=== PATIENT | male | born 1975 | race Caucasian/White ===

== ENCOUNTER 2018-04-25 17:49 | Emergency (ER) | payer OTHER ==
[~2018-04-25] VITALS: Ht 175.3 cm; Wt 113.4 kg
[~2018-04-25 17:49] MED LIST: ALBU90OI6 INH; ANTIHISTAMINE EY5 ML BOTHEYES; ATOR20; ATOR20 PO; BUDE6HFA; BUDE6HFA INH; CETI5 PO; CITA20 PO; MONT10T PO; NASACORT10.8 ML; OMEP20ER PO; OMEPRAZOLE MAGN20 MG; QVAR7.3 G1 INH; Ventolin Soln3 ML INH
[2018-04-25] MEDS ORDERED: MONT10T PO (18:46)
[2018-04-25] MEDS ORDERED: Prednisone50 MG PO (19:27)
== END 2018-04-25 20:09 | disposition home or self-care (01) ==
LOC: ER 17:49
DX: J45.901 Unspecified asthma with (acute) exacerbation (principal); Z88.5 Allergy status to narcotic agent; Z91.048 Other nonmedicinal substance allergy status; Z79.899 Other long term (current) drug therapy
CPT/HCPCS: 36415; 94640; 96374; 99283-25; J1100

== ENCOUNTER 2019-04-29 17:55 | Inpatient (IN) | payer OTHER ==
[~2019-04-29] VITALS: Ht 172.7 cm; Wt 105.2 kg
[~2019-04-29 17:55] MED LIST changes: -ATOR20; -BUDE6HFA; +Prednisone50 MG PO
[2019-04-29] MEDS ORDERED: ALBU3IS INH (18:31)
[2019-04-29] MEDS ORDERED: TEMA15 PO (18:31)
[2019-04-29] MEDS ORDERED: TIOT18 INH (18:31)
[2019-04-29] MEDS ORDERED: Voltaren100 GM TOP (18:32)
[2019-04-29] MEDS ORDERED: CLOB.05TO (18:32)
[2019-04-29] MEDS ORDERED: [UNRECOGNIZED DRUG - OTHER] MC (18:33)
[2019-04-29 19:09] LABS: BASOPHILS ABSOLUTE AUTO 0.09 K/mm3 (0.00-0.23); BASOPHILS PERCENT AUTO 2 % (0-2); EOSINOPHILS ABSOLUTE AUTO 0.17 K/mm3 (0.00-0.68); EOSINOPHILS PERCENT AUTO 3 % (0-6); Hemoglobin 15.8 g/dL (13.5-17.5); IMMATURE GRAN ABSOLUTE AUTO 0.01 K/mm3 (0.00-0.10); IMMATURE GRAN PERCENT AUTO 0 % (0-1); LYMPHOCYTES PERCENT AUTO 21 % (21-46); MONOCYTES ABSOLUTE AUTO 0.67 K/mm3 (0.16-1.47); MONOCYTES PERCENT AUTO 11 % (4-13); Mean Corpuscular HGB 29.2 pg (26.0-34.0); Mean Corpuscular HGB Conc 33.6 g/dL (31.5-36.5); Mean Corpuscular Volume 87 fL (80-100); Mean Platelet Volume 10.6 fL (9.1-12.4); NEUTROPHILS ABSOLUTE AUTO 3.93 K/mm3 (1.96-9.15); NEUTROPHILS PERCENT AUTO 64 % (41-73); Platelet Count 274 K/mm3 (150-400); RDW Coefficient Variation 12.1 % (11.7-14.2); RDW Standard Deviation 38.4 fL (35.1-46.3); Red Blood Cell Count 5.41 M/mm3 (4.30-5.90); White Blood Cell Count 6.17 K/mm3 (4.00-11.30)
[2019-04-29 19:23] LABS: Alanine Aminotransfer (ALT/SGP 34 U/L (12-78); Albumin, Blood 3.9 g/dL (3.4-5.0); Albumin/Globulin Ratio 1.3 (0.8-1.8); Alk Phos 66 U/L (50-136); Anion Gap 8 mmol/L (6-16); Aspartate Aminotrans (AST/SGOT 22 U/L (12-37); Bilirubin, Total 0.6 mg/dL (0.1-1.0); Blood Urea Nitrogen 19 mg/dL (8-24); Bun/Creatinine Ratio 26.1 (12.0-20.0); CO2, Blood 22 mmol/L (21-32); Calcium, Blood 8.6 mg/dL (8.5-10.1); Chloride, Blood 109 mmol/L (98-108); Creatinine, Blood 0.73 mg/dL (0.60-1.20); Globulin, Blood 3.1 g/dL (2.2-4.0); Glomerular Filtration Rate >60 (60-); Glucose, Blood 99 mg/dL (70-99); Potassium, Blood 3.8 mmol/L (3.5-5.5); Sodium, Blood 139 mmol/L (136-145); Troponin I 0.076 ng/mL (0.000-0.040)
[2019-04-29] MEDS ORDERED: OMEPRAZOLE20 MG PO (23:05)
[2019-04-30 02:13] LABS: Anion Gap 5 mmol/L (6-16); Blood Urea Nitrogen 22 mg/dL (8-24); Bun/Creatinine Ratio 25.9 (12.0-20.0); CHOL/HDL RATIO 5.6; CO2, Blood 28 mmol/L (21-32); Calcium, Blood 8.7 mg/dL (8.5-10.1); Chloride, Blood 109 mmol/L (98-108); Cholesterol 206 mg/dL (50-200); Creatinine, Blood 0.85 mg/dL (0.60-1.20); Glomerular Filtration Rate >60 (60-); Glucose, Blood 91 mg/dL (70-99); HDL Cholesterol 37 mg/dL (>39); LDL/HDL RATIO 3.5; Low Density Lipoprotein Chol 128 mg/dL (0-110); Potassium, Blood 3.6 mmol/L (3.5-5.5); Sodium, Blood 142 mmol/L (136-145); Triglycerides 206 mg/dL (30-160); Very Low Density Lipoprot Chol 41 mg/dL (6-32)
--- NOTE | 2019-04-30 05:03 | NUR ---
SHIFT SUMMARY PT NEW ADMIT THIS SHIFT. AAOX4. NPO THIS AM FOR POSSIBLE PROCEDURE. ELEVATED TROPONINS THIS AM, CARDIOLOGY CONSULT CALLED, HEPARIN BOLUS + GTT STARTED + PLAVIX DOSE GIVEN PER ORDERS. PT ORIENTED TO ROOM + CALL LIGHT. INDEPENDENT IN ROOM. ANXIOUS AT TIMES R/T DX, QUESTIONS ANSWERED. PT RESTING AT THIS TIME, NADN, WITH CALL LIGHT IN REACH.
--- NOTE | 2019-04-30 08:00 | NUR ---
HEPARIN DRIP STOPPED PER VERBAL ORDER FROM DR CRAWFORD
--- NOTE | 2019-04-30 10:53 | NUR ---
Echocardiogram completed.
--- NOTE | 2019-04-30 16:00 | NUR ---
SHIFT SUMMARY PT A&OX4, VSS, NPO SINCE MIDNIGHT FOR HYDROPULPER, DR CRAWFORD CONSULTED WITH PT AT 0800. FAMILY AT BEDSIDE WHEN PT WENT TO [facility] AT 1600. XANAX GIVEN TWICE FOR PT ANXIETY. REPORT CALLED TO ASHLEY RN IN PCU - FOR PT TRANSFER POST PROCEDURE TO PCU 5.
--- NOTE | 2019-04-30 18:25 | NUR ---
Right radial artery site was checked: No bleeding, no bruising, no swelling, no hematoma. Pt states no pain in the arm or hand. Cap refill is 3 seconds. TR band is in place, as well as white immoblizer board. Vital signs taken. Pt is requesting a breathing treatment, so respiratory care was notified. He appears to be breathing without any tachypnea, no use of accessory muscles, and sp02 is WNL. He is sitting up in bed, HOB elevated about 60 degrees. No tripoding, no dyspnea noted.
--- NOTE | 2019-04-30 20:30 | NUR ---
ASSUMED CARE ASSUMED CARE OF PATIENT AT 1900, PATIENT AWAKE SITTING IN BED WITH FAMILY IN ROOM. ASSESSING RIGHT RADIAL ANGIO SITE WITH OUTGOING RN, SITE IS INTACT, NO BLEEDING UNDER TR BAND FULLY INFLATED. PATIENT DENIES ACUTE PAIN AT SITE, NO REDNESS NO SWELLING NOTED. ARM BOARD IN PLACE, PATIENT COOPERATIVE WITH VITALS AND SITE ASSESSMENTS. SENSATION AND PERFUSION INTACT TO HAND AND FINGERS DISTAL TO SITE, SATURATION AT FINGERTIP IS 94%. PATIENT WILL NOT LOOK AT SITE, TURNS HEAD WHEN SITE IS ASSESSED. WILL CONTINUE TO ASSESS, MONITOR, AND TREAT PATIENT PER ORDER AND UNIT PROTOCOL.
--- NOTE | 2019-04-30 23:50 | NUR ---
AIR REMOVED FROM TR BAND REMOVED THE LAST OF 13 CC OF AIR FROM PATIENT'S TR BAND. SITE IS INTACT, WNL, NO BLEEDING, SWELLING OUT OF PROPORTION. VITALS CHECKS AND SITE ASSESSMENTS PER UNIT PROTOCOL HAVE ALL BEEN NORMAL WITH NO ISSUES. PATIENT IS EAGER TO GET SOME SLEEP AND ASKS THAT TR BAND BE LEFT IN PLACE UNTIL 4AM VITALS ARE TAKEN, RATHER THAN BE DISTURBED AT 0100.
--- NOTE | 2019-05-01 06:26 | NUR ---
SHIFT SUMMARY NO CHANGES FROM PREVIOUS NOTES. PATIENT WAS ABLE TO SLEEP A FEW HOURS IN THE PIPING DESIGNER, TR BAND WAS REMOVED AND REPLACED WITH CLEAR DRESSING AT AROUND 0330 WITH MORNING VITALS PATIENT REQUESTED TO NOT BE AWOKEN FOR ITS REMOVAL AT 0100 WOULD BE NORMALLY DONE. RIGHT WRIST ANGIO SITE REMAINED INTACT WITH NO NEW BLEEDING, REDNESS, SORENESS, OR SWELLING. PERFUSION TO PERIFERY REMAINED ABOVE 95% O2, AND SENSATION REMAINED INTACT THROUGHOUT. ALL VSS AND WNL. WILL CONTINUE TO MONITOR AND WILL PASS CARE TO ONCOMING SHIFT AT 0700. PATIENT'S BED IS LOCKED AND LOW, CALL LIGHT W/IN REACH
--- NOTE | 2019-05-01 08:00 | NUR ---
pt laying in bed awake a/ox3, pleasant and cooperative with care, follows commands, denies pain, states he slept well last night, lungs are clear dim in bases, resp even and unlabored, no cough noted, hrr, tele in place running sr per monitor, see strip, no edema noted, ppp+2, cap refill <3sec, vs stable, afebrile, iv sites are clear and patent, btx4, abd flat soft nontender, voids without diff, skin c/w/d, maew, jeni, call light in reach.
[2019-05-01] MEDS ORDERED: CLOP75 PO (10:12)
[2019-05-01] MEDS ORDERED: ASPI81CH PO (10:12)
--- NOTE | 2019-05-01 10:45 | NUR ---
pt has been discharged to home. went over his discharge instructions with him, he verbalized understanding. he has very high anxiety, had a hard time when removing iv's, doing ok now. iv's removed intact. pre printed instructions for tr band given. he is getting dressed and waiting for ride.
--- NOTE | 2019-05-01 11:19 | NUR ---
pt left via ambulation with manager cable in attendence with all his belongings.
== END 2019-05-01 11:19 | disposition home or self-care (01) | DRG 247 ==
LOC: ER 17:55 → SURS 21:34 → PCU 04-30 17:59
PROVIDERS: Emergency Medicine; Nurse Practitioner Acute Care; ADMIT Hospitalist
PROC: 4A023N8 Measurement of Cardiac Sampling and Pressure, Bilateral, Percutaneous Approach (ICD-10-PCS; principal; 2019-05-01)
PROC: 027035Z Dilation of Coronary Artery, One Artery with Two Drug-eluting Intraluminal Devices, Percutaneous Approach (ICD-10-PCS; 2019-05-01)
PROC: B211YZZ Fluoroscopy of Multiple Coronary Arteries using Other Contrast (ICD-10-PCS; 2019-05-01)
PROC: B216YZZ Fluoroscopy of Right and Left Heart using Other Contrast (ICD-10-PCS; 2019-05-01)
DX: I21.4 Non-ST elevation (NSTEMI) myocardial infarction (principal); I25.110 Atherosclerotic heart disease of native coronary artery with unstable angina pectoris; I10 Essential (primary) hypertension; K21.9 Gastro-esophageal reflux disease without esophagitis; R00.1 Bradycardia, unspecified; E78.5 Hyperlipidemia, unspecified; F41.9 Anxiety disorder, unspecified; E66.01 Morbid (severe) obesity due to excess calories; Z68.35 Body mass index [BMI] 35.0-35.9, adult
CPT/HCPCS: 36415; 71046; 80048; 80053; 80061; 83880; 84484; 85025; 85347; 85730; 90670; 90686; 92978; 93005; 93010; 93306; 93454; 94640; 94760; 96374; 99152; 99153; 99285-25; A9270; C1725; C1753; C1769; C1874; C1887; C1894; C9113; C9600; G0008; G0009; G0378; J1644; J2250; J3010; J7030; J7040; Q9967

== ENCOUNTER 2019-05-04 16:17 | Emergency (ER) | payer OTHER ==
[~2019-05-04] VITALS: Ht 172.7 cm; Wt 104.3 kg
[~2019-05-04 16:17] MED LIST changes: +ALBU3IS INH; +ASPI81CH PO; +CLOB.05TO; +CLOP75 PO; +OMEPRAZOLE20 MG PO; +TEMA15 PO; +TIOT18 INH; +Voltaren100 GM TOP; +[UNRECOGNIZED DRUG - OTHER] MC
[2019-05-04 17:28] LABS: BASOPHILS PERCENT AUTO 1 % (0-2); EOSINOPHILS ABSOLUTE AUTO 0.27 K/mm3 (0.00-0.68); EOSINOPHILS PERCENT AUTO 4 % (0-6); Hematocrit 48.4 % (37.0-53.0); Hemoglobin 16.4 g/dL (13.5-17.5); IMMATURE GRAN ABSOLUTE AUTO 0.01 K/mm3 (0.00-0.10); IMMATURE GRAN PERCENT AUTO 0 % (0-1); LYMPHOCYTES ABSOLUTE AUTO 1.51 K/mm3 (0.84-5.20); LYMPHOCYTES PERCENT AUTO 22 % (21-46); MONOCYTES PERCENT AUTO 15 % (4-13); Mean Corpuscular HGB 29.8 pg (26.0-34.0); Mean Corpuscular HGB Conc 33.9 g/dL (31.5-36.5); Mean Corpuscular Volume 88 fL (80-100); Mean Platelet Volume 10.4 fL (9.1-12.4); NEUTROPHILS ABSOLUTE AUTO 4.02 K/mm3 (1.96-9.15); NEUTROPHILS PERCENT AUTO 58 % (41-73); Platelet Count 274 K/mm3 (150-400); RDW Coefficient Variation 12.1 % (11.7-14.2); RDW Standard Deviation 39.1 fL (35.1-46.3); Red Blood Cell Count 5.51 M/mm3 (4.30-5.90); White Blood Cell Count 6.91 K/mm3 (4.00-11.30)
[2019-05-04 17:47] LABS: Alanine Aminotransfer (ALT/SGP 38 U/L (12-78); Albumin, Blood 4.4 g/dL (3.4-5.0); Albumin/Globulin Ratio 1.2 (0.8-1.8); Alk Phos 80 U/L (50-136); Anion Gap 9 mmol/L (6-16); Aspartate Aminotrans (AST/SGOT 19 U/L (12-37); Bilirubin, Total 0.7 mg/dL (0.1-1.0); Blood Urea Nitrogen 17 mg/dL (8-24); CO2, Blood 24 mmol/L (21-32); Calcium, Blood 9.4 mg/dL (8.5-10.1); Chloride, Blood 107 mmol/L (98-108); Globulin, Blood 3.8 g/dL (2.2-4.0); Glomerular Filtration Rate >60 (60-); Glucose, Blood 91 mg/dL (70-99); Potassium, Blood 3.8 mmol/L (3.5-5.5); Sodium, Blood 140 mmol/L (136-145); Total Protein, Blood 8.2 g/dL (6.4-8.2)
[2019-05-04] MEDS ORDERED: Roxicodone5 MG PO (18:02)
[2019-05-04] MEDS ORDERED: NAPR550 PO (18:02)
== END 2019-05-04 18:12 | disposition home or self-care (01) ==
LOC: ER 16:17
PROVIDERS: Emergency Medicine
DX: I31.9 Disease of pericardium, unspecified (principal); I25.2 Old myocardial infarction; J45.909 Unspecified asthma, uncomplicated; F41.9 Anxiety disorder, unspecified; I25.10 Atherosclerotic heart disease of native coronary artery without angina pectoris; E78.5 Hyperlipidemia, unspecified
CPT/HCPCS: 36415; 71046; 80053; 83880; 84484; 85025; 93005; 93010; 99285-25

== ENCOUNTER 2021-06-20 11:00 | Emergency (ER) | payer OTHER ==
[~2021-06-20] VITALS: Ht 175.3 cm; Wt 108.9 kg
[~2021-06-20 11:00] MED LIST changes: +NAPR550 PO; +Roxicodone5 MG PO
== END 2021-06-20 13:40 | disposition home or self-care (01) ==
LOC: ER 11:00
DX: M25.511 Pain in right shoulder (principal); E78.5 Hyperlipidemia, unspecified; K21.9 Gastro-esophageal reflux disease without esophagitis; I25.2 Old myocardial infarction; Z79.899 Other long term (current) drug therapy
CPT/HCPCS: 73000; 99283-25

== ENCOUNTER 2021-06-27 11:58 | Day surgery (SDC) | payer OTHER ==
[~2021-06-27] VITALS: Ht 175.3 cm; Wt 110.0 kg
[2021-06-27] MEDS ORDERED: FAMO40 PO (12:51)
[2021-06-27] MEDS ORDERED: CETIRIZINE HCL PO (12:52)
[2021-06-27 13:05] LABS: BASOPHILS ABSOLUTE AUTO 0.08 K/mm3 (0.00-0.23); BASOPHILS PERCENT AUTO 1 % (0-2); EOSINOPHILS ABSOLUTE AUTO 0.24 K/mm3 (0.00-0.68); EOSINOPHILS PERCENT AUTO 3 % (0-6); Hematocrit 48.3 % (37.0-53.0); Hemoglobin 16.2 g/dL (13.5-17.5); IMMATURE GRAN ABSOLUTE AUTO 0.02 K/mm3 (0.00-0.10); IMMATURE GRAN PERCENT AUTO 0 % (0-1); LYMPHOCYTES ABSOLUTE AUTO 1.31 K/mm3 (0.84-5.20); LYMPHOCYTES PERCENT AUTO 19 % (21-46); MONOCYTES ABSOLUTE AUTO 0.79 K/mm3 (0.16-1.47); MONOCYTES PERCENT AUTO 11 % (4-13); Mean Corpuscular HGB 29.7 pg (26.0-34.0); Mean Corpuscular HGB Conc 33.5 g/dL (31.5-36.5); Mean Corpuscular Volume 89 fL (80-100); Mean Platelet Volume 10.4 fL (9.1-12.4); NEUTROPHILS ABSOLUTE AUTO 4.55 K/mm3 (1.96-9.15); NEUTROPHILS PERCENT AUTO 65 % (41-73); Platelet Count 271 K/mm3 (150-400); Red Blood Cell Count 5.46 M/mm3 (4.30-5.90); White Blood Cell Count 6.99 K/mm3 (4.00-11.30)
--- NOTE | 2021-06-27 13:05 | NUR ---
06/27/21 Chalo Hubbard CALL LIGHT WITHIN REACH.
[2021-06-27 13:20] LABS: Anion Gap 6 mmol/L (6-16); Blood Urea Nitrogen 17 mg/dL (8-24); Bun/Creatinine Ratio 23.4 (12.0-20.0); CO2, Blood 28 mmol/L (21-32); Calcium, Blood 8.9 mg/dL (8.5-10.1); Chloride, Blood 106 mmol/L (98-108); Creatinine, Blood 0.73 mg/dL (0.60-1.20); Glomerular Filtration Rate >60 (60-); Glucose, Blood 111 mg/dL (70-99); Potassium, Blood 4.2 mmol/L (3.5-5.5); Sodium, Blood 140 mmol/L (136-145)
--- NOTE | 2021-06-27 14:42 | NUR ---
06/27/21 1442 Radha Jeong 1 MG EPI ADDED TO EACH OF THE FRIST 3 BAGS OF LR PER ORDER FOR IRRIGATION
--- NOTE | 2021-06-27 16:50 | NUR ---
06/27/21 1650 ARIE HURT PT HAD N&V WITH NO RESOLUTION WITH PREVIOUS PRESCRIBED NAUSEA MEDS. SPOKE WITH DR LESTER WHO ORDERED PHENEGRAN 12.5-25MG IV. 12.5 MG GIVEN AND NAUSEA RESOLVED AT DISCHARGE. PT VITALS STABLE AND HE STATED THAT HE WAS FEELING BETTER AND READY TO DC. PT FATHER SAI WAS HERE FOR RIDE HOME AND WILL BE CARING FOR HIM.
== END 2021-06-27 16:50 | disposition home or self-care (01) ==
LOC: ORSCSDS 11:58
PROVIDERS: Orthopaedic Surgery
PROC: 0RNJ4ZZ Release Right Shoulder Joint, Percutaneous Endoscopic Approach (ICD-10-PCS; principal; 2021-06-27 13:15)
PROC: 0LS34ZZ Reposition Right Upper Arm Tendon, Percutaneous Endoscopic Approach (ICD-10-PCS; principal; 2021-06-27 13:15)
PROC: 0PB94ZZ Excision of Right Clavicle, Percutaneous Endoscopic Approach (ICD-10-PCS; principal; 2021-06-27 13:15)
PROC: 0LQ14ZZ Repair Right Shoulder Tendon, Percutaneous Endoscopic Approach (ICD-10-PCS; principal; 2021-06-27 13:15)
DX: S46.001A Unspecified injury of muscle(s) and tendon(s) of the rotator cuff of right shoulder, initial encounter (principal); M75.21 Bicipital tendinitis, right shoulder; M75.41 Impingement syndrome of right shoulder; F41.8 Other specified anxiety disorders; I25.2 Old myocardial infarction; I25.10 Atherosclerotic heart disease of native coronary artery without angina pectoris; E78.00 Pure hypercholesterolemia, unspecified; J45.909 Unspecified asthma, uncomplicated; K21.9 Gastro-esophageal reflux disease without esophagitis; Z79.82 Long term (current) use of aspirin; Z79.899 Other long term (current) drug therapy
CPT/HCPCS: 80048; 85025; 93005; 93010; A9270; C1713; J0171; J0690; J1100; J2250; J2370; J2405; J2550; J2704; J2765; J3010; J7120